=== PATIENT | female | born 1940 | race Two or more races ===

== ENCOUNTER 2016-11-07 16:41 | Emergency (ER) | payer MEDICARE, MEDICAID ==
[~2016-11-07] VITALS: Ht 157.5 cm; Wt 81.6 kg
--- NOTE | 2016-11-07 17:14 | NUR ---
PT BIB DAUGHTER C/O HTN, SENT BY PMD, WITH SECONDARY C/O HEADACHE. NO NEURO DEFICITS NOTED. NO VISUAL CHANGES. NAD NOTED. AMBULATORY WITH STEADY GAIT. IN ER BED 09.
[2016-11-07 17:41] LABS: BASOPHILS # (AUTO) 0.2 /CMM (0.0-0.2); EOSINOPHILS # (AUTO) 0.1 /CMM (0.0-0.7); EOSINOPHILS % (AUTO) 1.3 % (0.0-6.0); HEMATOCRIT 41 % (33-45); HEMOGLOBIN 13.4 g/dL (11.5-14.8); LYMPHOCYTES # (AUTO) 1.7 /CMM (0.8-4.8); LYMPHOCYTES % (AUTO) 20.4 % (20.0-44.0); MEAN CORPUSCULAR HEMOGLOBIN 29 PG (26.0-33.0); MEAN CORPUSCULAR HGB CONC 33 g/dl (31.0-36.0); MEAN CORPUSCULAR VOLUME 90 fL (82-100); MONOCYTES # (AUTO) 0.6 /CMM (0.1-1.30); MONOCYTES % (AUTO) 7.8 % (2.0-12.0); NEUTROPHILS # (AUTO) 5.5 /CMM (1.8-8.9); NEUTROPHILS % (AUTO) 68.5 % (43.0-81.0); PLATELET COUNT (AUTO) 244 /CMM (150-450); RDW COEFFICIENT OF VARIATION 12.6 (11.5-15.0); RED BLOOD CELL COUNT(AUTO) 4.57 MIL/uL (4.0-5.2); WHITE BLOOD COUNT (AUTO) 8.1 K/uL (4.3-11.0)
[2016-11-07 17:51] LABS: CALCIUM, SERUM 9.4 mg/dL (8.5-10.1); CREATININE 0.8 mg/dL (0.6-1.3); POTASSIUM 4.2 mmol/L (3.5-5.1)
[2016-11-07 17:55] LABS: INR 0.94 (0.87-1.13); PROTHROMBIN TIME 9.8 SECS (9.5-12.7)
--- NOTE | 2016-11-07 17:56 | NUR ---
PT RETURNED FROM CT IN STABLE CONDITION
--- NOTE | 2016-11-07 19:20 | NUR ---
RESTING COMFORTABLY IN BED, NAD NOTED.
[2016-11-07 20:15] VITALS: BP 148/75
--- NOTE | 2016-11-07 20:16 | NUR ---
Patient discharged to home in stable condition. Written and verbal after care instructions given. Patient verbalizes understanding of instruction. AMBULATORY WITH STEADY GAIT. VSS.
== END 2016-11-07 20:16 | disposition home or self-care (01) ==
LOC: ER 16:44
DX: R51 Headache (principal); I10 Essential (primary) hypertension; R79.1 Abnormal coagulation profile
CPT/HCPCS: 36415; 70450; 80048; 85025; 85730; 99285; A4606; Z7610

== ENCOUNTER 2017-03-02 17:14 | Emergency (ER) | payer MEDICARE, MEDICAID ==
[~2017-03-02] VITALS: Ht 160 cm; Wt 81.2 kg
--- NOTE | 2017-03-02 17:38 | NUR ---
PT REC'D TO ER C/O FLU LIKE SYM FOR 1 MONTH . AWAITING EVALUATION BY ER PROVIDER.
[2017-03-02 18:38] LABS: BASOPHILS # (AUTO) 0.2 /CMM (0.0-0.2); BASOPHILS % (AUTO) 2.4 % (0.0-2.0); EOSINOPHILS # (AUTO) 0.2 /CMM (0.0-0.7); EOSINOPHILS % (AUTO) 2.2 % (0.0-6.0); HEMATOCRIT 36 % (33-45); HEMOGLOBIN 12.3 g/dL (11.5-14.8); LYMPHOCYTES # (AUTO) 2.1 /CMM (0.8-4.8); MEAN CORPUSCULAR HEMOGLOBIN 31 PG (26.0-33.0); MEAN CORPUSCULAR HGB CONC 34 g/dl (31.0-36.0); MEAN CORPUSCULAR VOLUME 92 fL (82-100); MONOCYTES # (AUTO) 0.6 /CMM (0.1-1.30); MONOCYTES % (AUTO) 7.1 % (2.0-12.0); NEUTROPHILS # (AUTO) 5.7 /CMM (1.8-8.9); NEUTROPHILS % (AUTO) 64.3 % (43.0-81.0); PLATELET COUNT (AUTO) 220 /CMM (150-450); RDW COEFFICIENT OF VARIATION 12.4 (11.5-15.0); RED BLOOD CELL COUNT(AUTO) 3.98 MIL/uL (4.0-5.2); WHITE BLOOD COUNT (AUTO) 8.8 K/uL (4.3-11.0)
[2017-03-02] MEDS ORDERED: METF500T4 PO (18:42)
[2017-03-02] MEDS ORDERED: METF850T2 PO (18:42)
[2017-03-02] MEDS ORDERED: OLME1TAB PO (18:42)
[2017-03-02] MEDS ORDERED: SIMV10TA2 PO (18:42)
[2017-03-02] MEDS ORDERED: DULO60CA45 PO (18:42)
[2017-03-02] MEDS ORDERED: METO25TA6 PO (18:42)
[2017-03-02 18:49] LABS: CALCIUM, SERUM 8.8 mg/dL (8.5-10.1); CARBON DIOXIDE 27 mmol/L (21-32); CHLORIDE 103 mmol/L (98-107); GLUCOSE 131 mg/dL (74-106); POTASSIUM 3.5 mmol/L (3.5-5.1); SODIUM SERUM 140 mmol/L (136-145); UREA NITROGEN, BLOOD 17 mg/dL (7-18)
[2017-03-02 18:59] LABS: ALANINE AMINOTRANSFERASE 24 U/L (12-78); ALBUMIN 3.9 g/dL (3.4-5.0); ALKALINE PHOSPHATASE 70 U/L (46-116); ASPARTATE AMINOTRANSFERASE 19 U/L (15-37); BILIRUBIN,DIRECT 0.1 mg/dL (0.0-0.2); BILIRUBIN,TOTAL 0.2 mg/dL (0.2-1.0)
[2017-03-02 19:00] LABS: TROPONIN I < 0.017 ng/mL (0.00-0.056)
--- NOTE | 2017-03-02 19:02 | NUR ---
REPORT RECEIVED BY IVONNE GOLDEN FOR [facility]. PT APPEARS COMFORTABLE. FAMILY AT BEDSIDE
--- NOTE | 2017-03-02 19:15 | NUR ---
DR. LLANES AT BEDSIDE SPEAKING TO PT AND FAMILY REGARDING RESULTS
--- NOTE | 2017-03-02 19:18 | NUR ---
Patient discharged to home in stable condition. Written and verbal after care instructions given. Patient verbalizes understanding of instruction. ambulatory with a steady gait. instructed pt not to drive. pt verbalize understanding, accompanied by daughter.
[2017-03-02 19:19] VITALS: BP 118/71
== END 2017-03-02 19:20 | disposition home or self-care (01) ==
LOC: ER 17:17
DX: R05 Cough (principal); R09.89 Other specified symptoms and signs involving the circulatory and respiratory systems; I10 Essential (primary) hypertension
CPT/HCPCS: 36415; 71010-TC; 80048-TC; 80076-TC; 84484-TC; 85025-TC; A4606; Z7610